=== PATIENT | female | born 1990 | race Caucasian/White ===

== ENCOUNTER 2017-07-30 13:34 | Emergency (ER) | payer OTHER ==
[~2017-07-30] VITALS: Ht 160 cm; Wt 99.1 kg
[2017-07-30 13:34] VITALS: BP 132/92
[~2017-07-30 13:34] MED LIST: /MOM400 PO; ACET50TA PO; COLA50CA3 PO; IBUP600T26 PO; MOTR200T44 PO; PRE-TAB3 PO; RANI1TAB6 PO; ZANT150T PO
[2017-07-30] MEDS ORDERED: SERT-138 (14:05)
== END 2017-07-30 16:29 | disposition left against medical advice (07) ==
LOC: M ED 13:34
DX: J02.9 Acute pharyngitis, unspecified (principal); Z53.21 Procedure and treatment not carried out due to patient leaving prior to being seen by health care provider

== ENCOUNTER 2018-07-07 14:48 | Emergency (ER) | payer SELFPAY, OTHER ==
[2018-07-07 15:41] LABS: BASO % 0.2 % (0.0-1.0); EOS # 0.1 10^3/uL (0.0-0.50); EOS % 0.4 % (0.0-3.0); HEMATOCRIT 37.7 % (36.0-47.0); HEMOGLOBIN 12.8 g/dl (12.0-15.5); IMMATURE GRANULOCYTE % 0.5 % (0-3.0); LYMPH # 3.5 10^3/uL (1.5-6.5); LYMPH % 29.4 % (24.0-44.0); MEAN CORPUSCULAR VOLUME 88.5 fl (80.0-96.0); MONO # 0.5 10^3/uL (0.0-0.8); MONO % 4.5 % (0.0-5.0); NEUTROPHILS # 7.8 10^3/uL (1.8-7.7); PLATELET COUNT, AUTOMATED 304 10^3/uL (150-450); RED BLOOD COUNT 4.26 10^6/uL (4.00-5.40); RED CELL DISTRIBUTION WIDTH 12.8 % (11.5-14.5)
[2018-07-07 15:51] LABS: CONTROL LINE HCG INT CTR LINE PRESENT; HCG, SERUM QUALITATIVE NEGATIVE (NEGATIVE)
[2018-07-07 15:52] LABS: INR 1.05; PROTHROMBIN TIME 13.9 SECONDS (12.1-14.4)
[2018-07-07 15:53] LABS: PARTIAL THROMBOPLASTIN TIME 30.8 SECONDS (25.4-37.6)
== END 2018-07-07 17:14 | disposition home or self-care (01) ==
LOC: M ED 14:48
DX: N93.8 Other specified abnormal uterine and vaginal bleeding (principal); N83.291 Other ovarian cyst, right side; D25.9 Leiomyoma of uterus, unspecified; K21.9 Gastro-esophageal reflux disease without esophagitis; F32.9 Major depressive disorder, single episode, unspecified; Z79.899 Other long term (current) drug therapy; Z88.1 Allergy status to other antibiotic agents
CPT/HCPCS: 76856

== ENCOUNTER 2018-09-25 13:41 | Emergency (ER) | payer SELFPAY | END 2018-09-25 15:30 | disposition home or self-care (01) | LOC: M ED 13:41 | DX: J30.9 Allergic rhinitis, unspecified (principal); Z79.899 Other long term (current) drug therapy; Z88.8 Allergy status to other drugs, medicaments and biological substances | CPT/HCPCS: 99283 ==

== ENCOUNTER → 2019-04-15 | Outpatient (REF) | payer MEDICAID ==
[~2019-04-15] MED LIST changes: -/MOM400 PO; -ACET50TA PO; +IBUP-1022 PO; +MAPA500T17 PO; +MILK10SU PO; +MUCI600T31 PO; +SERT-138; +SUDA30TA8 PO
[2019-04-15 13:26] LABS: APPEARANCE, URINE CLOUDY (CLEAR); BACTERIA, URINE AUTO NEGATIVE (NEGATIVE); BILIRUBIN, URINE AUTO NEGATIVE (NEGATIVE); BLOOD, URINE BLOOD 2+ (NEGATIVE); COLOR, URINE YELLOW (YELLOW); GLUCOSE, URINE (UA) AUTO NEGATIVE (NEGATIVE); KETONE, URINE AUTO NEGATIVE (NEGATIVE); LEUKOCYTE ESTERASE, URINE AUTO 3+ (NEGATIVE); MUCUS, URINE SMALL (NEGATIVE); NITRITE, URINE AUTO NEGATIVE (NEGATIVE); PROTEIN, URINE AUTO 1+ mg/dL (NEGATIVE); RBC, URINE AUTO 14 /HPF (0-3); SPECIFIC GRAVITY URINE AUTO 1.024 (1.002-1.035); SQUAMOUS EPITHELIAL CELL UR AU 46 /HPF (0-6); UROBILINOGEN, URINE AUTO 0.2 mg/dL (0.0-2.0); WBC, URINE AUTO 20 /HPF (0-3)
== END ==
LOC: M LAB REF 12:37
PROVIDERS: ATTEND Physician Assistant Medical
DX: N39.0 Urinary tract infection, site not specified (principal)

== ENCOUNTER 2019-06-16 05:06 | Emergency (ER) | payer MEDICAID, OTHER ==
[~2019-06-16] VITALS: Ht 162.6 cm; Wt 121.2 kg
[2019-06-16 07:00] LABS: BASO % 0.2 % (0.0-1.0); EOS # 0.1 10^3/uL (0.0-0.50); HEMATOCRIT 38.6 % (36.0-47.0); LYMPH # 4.2 10^3/uL (1.5-6.5); LYMPH % 34.9 % (24.0-44.0); MEAN CORPUSCULAR HEMOGLOBIN 29.1 pg (27.0-33.0); MEAN CORPUSCULAR HGB CONC 33.7 g/dl (32.0-36.5); MEAN CORPUSCULAR VOLUME 86.4 fl (80.0-96.0); MONO # 0.7 10^3/uL (0.0-0.8); MONO % 5.9 % (0.0-5.0); NEUTROPHILS % 57.7 % (36.0-66.0); PLATELET COUNT, AUTOMATED 322 10^3/uL (150-450); RED BLOOD COUNT 4.47 10^6/uL (4.00-5.40); WHITE BLOOD COUNT 12.1 10^3/uL (4.0-10.0)
[2019-06-16 07:06] LABS: CHLAMYDIA DNA AMPLIFICATION NEGATIVE (NEGATIVE); GC DNA AMPLIFICATION NEGATIVE (NEGATIVE)
[2019-06-16] MEDS ORDERED: FOSFOMYCIN TROMETHAMINE 3 GM POWDER PACKET (MONUROL) PO ONE (08:15)
[2019-06-16 08:43] VITALS: BP 132/83
[2019-06-16 11:50] LABS: CHLAMYDIA DNA AMPLIFICATION NEGATIVE (NEGATIVE); GC DNA AMPLIFICATION NEGATIVE (NEGATIVE)
== END 2019-06-16 08:50 | disposition home or self-care (01) ==
LOC: M ED 05:06
DX: O23.41 Unspecified infection of urinary tract in pregnancy, first trimester (principal); O99.611 Diseases of the digestive system complicating pregnancy, first trimester; K21.9 Gastro-esophageal reflux disease without esophagitis; O99.341 Other mental disorders complicating pregnancy, first trimester; F33.9 Major depressive disorder, recurrent, unspecified; O98.511 Other viral diseases complicating pregnancy, first trimester; B02.9 Zoster without complications; Z79.899 Other long term (current) drug therapy; Z88.0 Allergy status to penicillin; Z88.1 Allergy status to other antibiotic agents; Z3A.00 Weeks of gestation of pregnancy not specified

== ENCOUNTER → 2019-06-18 | Outpatient (CLI) | payer OTHER | LOC: M LAB 09:10 | PROVIDERS: ATTEND Physician Assistant | DX: Z00.00 Encounter for general adult medical examination without abnormal findings (principal) ==

== ENCOUNTER 2019-07-27 17:47 | Emergency (ER) | payer OTHER ==
[~2019-07-27] VITALS: Ht 160 cm; Wt 118.2 kg
[~2019-07-27 17:47] MED LIST changes: +RANI-356 PO; -RANI1TAB6 PO
[2019-07-27] MEDS ORDERED: PREN29TA4 PO (17:52)
[2019-07-27] MEDS ORDERED: ZOFR4TAB16 PO (17:52)
--- NOTE | 2019-07-27 18:28 | REPVR ---
EXAM: US First Trimester, Transabdominal EXAM DATE/TIME: 07/27/2019 6:09 PM CLINICAL HISTORY: 28 years old, female; Lmp or gestational age (in weeks): 11; Other: Vaginal bleeding; ; Additional info: Vaginal bleeding, 10 weeks 4 days TECHNIQUE: Imaging protocol: Real-time transabdominal obstetrical ultrasound of the maternal pelvis and a first trimester , less than 14 weeks 0 days, with image documentation. COMPARISON: No relevant prior studies available. FINDINGS: GESTATION: Gestation: Single gestational sac in the uterus. Single fetus demonstrated within the gestational sac. [place]-rump length of the fetus is 4.1 cm. Heart rate: heart rate 165 beats per minute. Placenta: Early placental tissue forming posteriorly. Amniotic fluid: Amniotic and chorionic fluid are normal for gestational age. BIOMETRY: Estimated gestational age: The gestational age based on crown-rump length is 11 weeks. Gestational age based on LMP of 05/14/2019 is 10 weeks 4 days MATERNAL: Uterus: Unremarkable. Cervix: Unremarkable. Right adnexa: Unremarkable. Left adnexa: Cyst left ovary measures 2.8 x 2.1 cm. Otherwise unremarkable. Intraperitoneal: No intraperitoneal free fluid. IMPRESSION: Unremarkable for trimester scan at 11 weeks. Detailed structural survey can be performed between 19-20 weeks if clinically desired. Electronically signed by: Kota Mcgovern On 07/27/2019 18:28:10 PM
[2019-07-27 18:32] LABS: BASO % 0.2 % (0.0-1.0); EOS # 0.1 10^3/uL (0.0-0.5); EOS % 0.8 % (0.0-3.0); HEMATOCRIT 39.2 % (36.0-47.0); HEMOGLOBIN 13.4 g/dl (12.0-15.5); LYMPH # 3.5 10^3/uL (1.5-5.0); LYMPH % 28.2 % (24.0-44.0); MEAN CORPUSCULAR HEMOGLOBIN 30.5 pg (27.0-33.0); MEAN CORPUSCULAR HGB CONC 34.2 g/dl (32.0-36.5); MEAN CORPUSCULAR VOLUME 89.1 fl (80.0-96.0); MONO # 0.7 10^3/uL (0.0-0.8); MONO % 5.2 % (0.0-5.0); NEUTROPHILS # 8.1 10^3/uL (1.5-8.5); NEUTROPHILS % 65.2 % (36.0-66.0); PLATELET COUNT, AUTOMATED 276 10^3/uL (150-450); WHITE BLOOD COUNT 12.5 10^3/uL (4.0-10.0)
[2019-07-27 19:26] LABS: BLOOD UREA NITROGEN 6 MG/DL (7-18); CALCIUM LEVEL 9.1 MG/DL (8.5-10.1); CARBON DIOXIDE LEVEL 25 MEQ/L (21-32); CHLORIDE LEVEL 105 MEQ/L (98-107); CREATININE FOR GFR 0.69 MG/DL (0.55-1.30); GLOMERULAR FILTRATION RATE > 60.0 (>60); GLUCOSE, FASTING 97 MG/DL (70-100); HCG, SERUM QUANTITATIVE 28736 MIU/ML; POTASSIUM SERUM 3.8 MEQ/L (3.5-5.1); SODIUM LEVEL 138 MEQ/L (136-145)
[2019-07-27 19:59] VITALS: BP 143/93
== END 2019-07-27 20:04 | disposition home or self-care (01) ==
LOC: M ED 17:47
DX: O20.9 Hemorrhage in early pregnancy, unspecified (principal); Z3A.11 11 weeks gestation of pregnancy; O99.611 Diseases of the digestive system complicating pregnancy, first trimester; K21.9 Gastro-esophageal reflux disease without esophagitis; Z79.899 Other long term (current) drug therapy; Z88.0 Allergy status to penicillin; Z88.1 Allergy status to other antibiotic agents

== ENCOUNTER → 2019-08-21 | Outpatient (CLI) | payer OTHER ==
[~2019-08-21] MED LIST changes: +PREN29TA4 PO; +ZOFR4TAB16 PO
[2019-08-21 17:10] LABS: BASO % 0.2 % (0.0-1.0); EOS # 0.1 10^3/uL (0.0-0.5); EOS % 0.4 % (0.0-3.0); HEMATOCRIT 36.8 % (36.0-47.0); HEMOGLOBIN 12.3 g/dl (12.0-15.5); LYMPH # 2.5 10^3/uL (1.5-5.0); LYMPH % 21.6 % (24.0-44.0); MEAN CORPUSCULAR HEMOGLOBIN 29.5 pg (27.0-33.0); MEAN CORPUSCULAR HGB CONC 33.4 g/dl (32.0-36.5); MEAN CORPUSCULAR VOLUME 88.2 fl (80.0-96.0); MONO # 0.5 10^3/uL (0.0-0.8); MONO % 4.2 % (0.0-5.0); NEUTROPHILS # 8.6 10^3/uL (1.5-8.5); NEUTROPHILS % 73.3 % (36.0-66.0); PLATELET COUNT, AUTOMATED 224 10^3/uL (150-450); RED BLOOD COUNT 4.17 10^6/uL (4.00-5.40); WHITE BLOOD COUNT 11.7 10^3/uL (4.0-10.0)
[2019-08-21 17:33] LABS: ALT/SGPT 28 U/L (12-78); BILIRUBIN,TOTAL 0.2 MG/DL (0.2-1.0); CREATININE FOR GFR 0.41 MG/DL (0.55-1.30); GLOMERULAR FILTRATION RATE > 60.0 (>60); GLUCOSE CHALLENGE TEST 1 HOUR 118 MG/DL (LESS THAN 140); LDH LACTATE DEHYDROGENASE 151 U/L (84-246); URIC ACID 3.6 MG/DL (2.6-6.0)
[2019-08-21 17:57] LABS: HEMOGLOBIN A1c 4.6 %
[2019-08-21 18:02] LABS: TOTAL PROTEIN,RANDOM URINE 45.3 MG/DL (0.0-12.0)
[2019-08-21 18:39] LABS: CHLAMYDIA DNA AMPLIFICATION NEGATIVE (NEGATIVE); GC DNA AMPLIFICATION NEGATIVE (NEGATIVE)
[2019-08-22 11:57] LABS: RUBELLA IgG QUALITATIVE IMMUNE (IMMUNE)
[2019-08-22 12:26] LABS: HEPATITIS C VIRUS ABY INDEX 0.1 INDEX (<0.8); HIV 1&2 SCREEN CENTAUR NEGATIVE (NEGATIVE)
[2019-08-24 00:26] LABS: HSV IgM TYPES 1&2 1.12 Ratio (0.00-0.90); HSV TYPE II IgG SPECIFIC 2.62 index (0.00-0.90)
[2019-08-28 10:07] LABS: HPV HYBRID CAPTURE II Positive (Negative)
== END ==
LOC: M SMT 14:44
PROVIDERS: ATTEND Advanced Practice Midwife
DX: Z34.81 Encounter for supervision of other normal pregnancy, first trimester (principal); Z3A.09 9 weeks gestation of pregnancy; R87.610 Atypical squamous cells of undetermined significance on cytologic smear of cervix (ASC-US)

== ENCOUNTER → 2019-10-01 | Outpatient (CLI) | payer OTHER ==
--- NOTE | 2019-10-02 05:05 | REP ---
Clinical: Anatomical evaluation. Comparison: 90 07/08/2019 Findings: Examination demonstrates a single live intrauterine in variable presentation. motion is identified by technologist. Placenta is noted posterior and grade I without evidence for placenta previa or abruption. Amniotic fluid volume is normal. Cervix measures 5.1 cm in length and appears closed. Nuchal cord cannot be excluded. Gestational age by LMP 20 weeks 0 days with ELDER 02/18/2020 . Gestational age by current measurements 20 weeks 4 days with ELDER 02/14/2020 . FHR equals 146 beats per minute. BPD 4.8 cm 20 weeks 4 days HC 17.7 cm 20 weeks 1 day AC 15.7 cm 20 weeks 6 days FL 3.3 cm 20 weeks 3 days HL 3.2 cm 20 weeks 6 days HC/AC ratio 1.13 Estimated weight 365 grams ( 69th percentile). Anatomical assessment demonstrates normal structures including cranium, choroid plexus, cavum, cerebellum/posterior fossa, facial features, lungs, four-chamber heart/ventricular outflow tracts, diaphragm, stomach, cord insertion/three-vessel cord, kidneys/bladder, spine, and extremities. Impression: Single live intrauterine in variable presentation demonstrating appropriate interval growth. Anatomical assessment is complete and normal. 2. Nuchal cord cannot be excluded. Electronically Signed by Zeke Huang MD 10/02/2019 04:56 A
== END ==
LOC: M RAD 14:42
PROVIDERS: ATTEND Advanced Practice Midwife
DX: Z36.9 Encounter for antenatal screening, unspecified (principal); Z3A.20 20 weeks gestation of pregnancy

== ENCOUNTER → 2019-11-24 | Outpatient (CLI) | payer OTHER ==
[~2019-11-24] MED LIST changes: -RANI-356 PO; +RANI-397 PO
[2019-11-24 18:01] LABS: HEMATOCRIT 36.1 % (36.0-47.0); HEMOGLOBIN 11.8 g/dl (12.0-15.5); MEAN CORPUSCULAR HEMOGLOBIN 29.9 pg (27.0-33.0); MEAN CORPUSCULAR HGB CONC 32.7 g/dl (32.0-36.5); MEAN CORPUSCULAR VOLUME 91.6 fl (80.0-96.0); PLATELET COUNT, AUTOMATED 229 10^3/uL (150-450); RED BLOOD COUNT 3.94 10^6/uL (4.00-5.40); WHITE BLOOD COUNT 13.8 10^3/uL (4.0-10.0)
== END ==
LOC: M PLALAB 12:38
PROVIDERS: ATTEND Advanced Practice Midwife
DX: Z36.89 Encounter for other specified antenatal screening (principal)

== ENCOUNTER → 2019-12-16 | Outpatient (CLI) | payer OTHER ==
[2019-12-16 16:44] LABS: ALBUMIN 2.8 GM/DL (3.2-5.2); ALT/SGPT 20 U/L (12-78); BILIRUBIN,DIRECT < 0.1 MG/DL (0.0-0.2); BILIRUBIN,TOTAL 0.2 MG/DL (0.2-1.0); TOTAL PROTEIN 6.3 GM/DL (6.4-8.2)
== END ==
LOC: M PLALAB 13:47
PROVIDERS: ATTEND Advanced Practice Midwife
DX: L29.8 Other pruritus (principal)

== ENCOUNTER → 2020-01-21 | Outpatient (CLI) | payer OTHER ==
--- NOTE | 2020-01-21 14:17 | REP ---
Obstetric sonography: History: Supervision of size larger than dates. Third trimester scan. Findings: Scanning through the gravid uterus demonstrates a viable single intrauterine gestation in a cephalic lie. motion is observed and heart rate is recorded at 150 beats per minute. A posterior grade 1 placenta is seen without evidence of previa or abruption. Amniotic fluid is subjectively normal. Closed cervical length is 3.6 cm. No extrauterine abnormality is observed. There has been appropriate interval growth. The following anatomic structures are identified and felt to be unremarkable today: cranium, cavum, face and profile, four-chamber heart, left-sided stomach, three-vessel cord, kidneys and bladder. Biometry chart: BPD 9.0 cm = 36 weeks 3 days Head circumference 33.8 cm = 38 weeks 6 days Abdominal circumference 33.4 cm = 37 weeks 2 days Femur length 6.9 cm = 35 weeks 3 days Humeral length 6.4 cm = 37 weeks 1 day HC/AC ratio normal 1.01. Cephalic index normal 0.73. Estimated weight 3065 grams, 6 pounds 12 ounces, 66th percentile for 36 weeks 0 days. MILA normal 14.0 cm. Impression: Viable single intrauterine gestation at 36 weeks 3 days by today's composite sonographic criteria. Expected gestational age estimate based on prior sonography is 36 weeks 0 days. ELDER by prior sonography March 19, 2020. There has been appropriate interval growth.
== END ==
LOC: M WHC 10:48
PROVIDERS: ATTEND Advanced Practice Midwife
DX: Z36.85 Encounter for antenatal screening for Streptococcus B (principal); Z36.2 Encounter for other antenatal screening follow-up; Z3A.36 36 weeks gestation of pregnancy; O26.849 Uterine size-date discrepancy, unspecified trimester

== ENCOUNTER 2020-02-15 07:14 | Inpatient (IN) | payer OTHER ==
[2020-02-15] VITALS (32 sets, daily range): BP systolic 88–145; BP diastolic 56–88
[~2020-02-15] VITALS: Ht 162.6 cm; Wt 135.9 kg
[2020-02-15] MEDS ORDERED: miSOPROStol 50 MCG 1/2 TAB (S0191) SL SCH (09:00)
[2020-02-15] MEDS: LR 1,000 ML IV SCH ×3 (09:43→19:25)
--- NOTE | 2020-02-15 09:57 | HPE ---
DATE OF ADMISSION: 02/15/2020 A 29-year-old G7, P5-0-1-5 female at 39-4/7 weeks' gestation by last menstrual period (LMP) consistent with 9-week ultrasound, estimated date of confinement (EDC) of 02/18/2020, presents for labor induction. The patient has occasional contractions. She denies vaginal bleeding. There is good movement. COURSE: The patient initiated care at 9 weeks' gestation on 07/17/2019 . Her first-trimester blood pressure was 132/78. Weight 263 pounds. She has a history of possible genital herpes infection but no prove in herpes cultures. History of preeclampsia in a prior . She was treated with Valtrex during the latter part of for prophyllaxis. OBSTETRICAL HISTORY: 1. 2008, 38-week vaginal delivery, 7 pound 8 ounce male infant. complicated by preeclampsia. 2. November 2010, 39-week vaginal delivery, 6 pound 9 ounce female . 3. 2011, 39-week vaginal delivery, 7 pound 4 ounce female infant. 4. 2013, 39-week vaginal delivery, 7 pound 8 ounce female . 5. 2014, 39-week vaginal delivery, 7 pound 8 ounce male infant. 6. 2014, spontaneous . MEDICAL HISTORY: Depression. SURGICAL HISTORY: None. ALLERGIES: 1. PENICILLIN. 2. CECLOR. SOCIAL HISTORY: The patient lives in [place]. She denies cigarettes, alcohol, or drug use. FAMILY HISTORY: Noncontributory. PHYSICAL EXAMINATION: Blood pressure 134/74, pulse 84. No apparent distress. HEAD AND NECK EXAMINATION: Normal. LUNGS: Clear. HEART: Regular rate and rhythm. ABDOMEN: Nontender, gravid. heart tones category 1. Contractions irregular. EXTREMITIES: Nontender. LABORATORIES: Blood type is O positive, rubella immune, rapid plasma reagin (RPR) nonreactive, group B streptococcus (GBS) negative. ASSESSMENT: A 29-year-old G7, P5-0-1-5 female at 39-4/7 weeks' gestation presents for labor induction. PLAN: The patient is admitted on 02/15/2020. The risks of induction are discussed.
[2020-02-15 10:08] LABS: HEMATOCRIT 36.8 % (36.0-47.0); HEMOGLOBIN 12.1 g/dl (12.0-15.5); MEAN CORPUSCULAR HEMOGLOBIN 29.1 pg (27.0-33.0); MEAN CORPUSCULAR HGB CONC 32.9 g/dl (32.0-36.5); MEAN CORPUSCULAR VOLUME 88.5 fl (80.0-96.0); PLATELET COUNT, AUTOMATED 240 10^3/uL (150-450); RED BLOOD COUNT 4.16 10^6/uL (4.00-5.40); WHITE BLOOD COUNT 13.8 10^3/uL (4.0-10.0)
[2020-02-15] MEDS ORDERED: ROLA1CHW PO (10:30)
[2020-02-15] MEDS ORDERED: ASPI81TA26 PO (10:30)
[2020-02-15] MEDS ORDERED: VALA500T5 (10:30)
[2020-02-15] MEDS ORDERED: FAMO40TA3 PO (10:30)
[2020-02-15] MEDS ORDERED: OXYTOCIN 30 UNITS IN 0.9% NaCl 500ML IV BAG (J2590) As Ordered ONE (12:54)
[2020-02-15] MEDS ORDERED: OXYTOCIN DRIP 30 UNITS in IV 1 EA IV SCH (13:00)
[2020-02-15] MEDS ORDERED: FENTANYL 2MCG/ML ROPIVACAINE 0.2% IN 0.9% NACL 100ML IVBAG As Ordered ONE (16:17)
[2020-02-15] MEDS ORDERED: diphenhydrAMINE INJ 50MG/ML VIAL (J1200) IV PRN (17:00)
[2020-02-15] MEDS ORDERED: EPIDURAL COMMENT XX SCH (17:00)
[2020-02-15] MEDS ORDERED: EPIDURAL/PCA KEYS XX PRN (17:00)
[2020-02-15] MEDS ORDERED: REFRIGERATOR IV KEYS XX PRN (17:00)
[2020-02-15] MEDS ORDERED: ONDANSETRON 4MG/2ML VIAL (J2405) IV PRN (17:00)
[2020-02-15] MEDS ORDERED: ePHEDrine SULFATE 25 MG/5 ML(5MG/ML) SYRINGE IV PRN (17:00)
[2020-02-15] MEDS ORDERED: FENTANYL/ROPIVACAINE/NACL BAG 100 ML EPIDURAL SCH (17:00)
[2020-02-15] MEDS ORDERED: NALOXONE INJ 0.4 MG/1 ML VIAL (J2310) IV PRN (17:00)
[2020-02-15] MEDS ORDERED: CALCIUM CARBONATE 500 MG CHEW U/D PO PRN (22:45)
[2020-02-16] VITALS (7 sets, daily range): BP systolic 113–133; BP diastolic 58–76
[2020-02-16] MEDS ORDERED: IBUPROFEN 800 MG TAB PO PRN (00:45)
[2020-02-16] MEDS ORDERED: MEASLES,MUMPS,RUBELLA VACCINE INJ (MMR-II) (90707) SC SCH (00:45)
[2020-02-16] MEDS ORDERED: RHOGAM 300 MCG (1500 IU) INJ (J2790) IM SCH (00:45)
[2020-02-16] MEDS ORDERED: ACETAMINOPHEN 500 MG TAB PO PRN (00:45)
[2020-02-16] MEDS ORDERED: METHYLERGONOVINE MALEATE 0.2 MG TAB PO PRN (00:45)
[2020-02-16] MEDS ORDERED: ONDANSETRON 4MG/2ML VIAL (J2405) IV PRN (00:45)
[2020-02-16] MEDS ORDERED: DOCUSATE SODIUM 100 MG CAP PO PRN (00:45)
[2020-02-16] MEDS ORDERED: DIBUCAINE 1% OINTMENT 30GM TOP PRN (00:45)
[2020-02-16] MEDS ORDERED: OXYTOCIN DRIP 30 UNITS in IV 1 EA IV ONE (00:45)
[2020-02-16] MEDS ORDERED: ACETAMINOPHEN TAB 650MG DOSE (2X325MG) PO PRN (00:45)
[2020-02-16] MEDS: IBUPROFEN 600 MG TAB PO PRN ×2 (01:51→08:22)
--- NOTE | 2020-02-16 06:53 | DN ---
DATE: 02/16/2020 PREDELIVERY DIAGNOSIS: 39 and 4/7 weeks gestation, labor induction. POSTDELIVERY DIAGNOSIS: Delivered. PROCEDURE: Spontaneous vaginal delivery. BILLING ASSISTANT: Dr. Bradley Lin ANESTHESIA: Epidural. ESTIMATED BLOOD LOSS: 300 mL. FINDINGS: 8 pound 15 ounce male , Apgars 8 and 9. DELIVERY SUMMARY: After a 9 minute second stage, the patient had spontaneous delivery of an 8 pound 15 ounce male infant, Apgars 8 and 9, under epidural anesthesia. Loose nuchal cord times one was reduced. The shoulders delivered with ease. The was handed to the mother and cried immediately. The cord was doubly clamped and cut. The placenta delivered spontaneously and appeared to be intact. The patient received IV Pitocin immediately delivery of the placenta. There were no vaginal lacerations present. Sponge counts were correct.
[2020-02-16] MEDS: PRENATAL VITAMINS CHEWABLE TABLET PO SCH (08:21)
[2020-02-17 06:32] VITALS: BP 132/85
[2020-02-17] MEDS: PRENATAL VITAMINS CHEWABLE TABLET PO SCH (07:38)
[2020-02-17] MEDS ORDERED: ACET-683 PO (07:45)
[2020-02-17] MEDS ORDERED: IBUP80TA PO (07:45)
== END 2020-02-17 11:50 | disposition home or self-care (01) | DRG 560 ==
LOC: M LDI 07:14 → M OBS 02-16 02:42
PROVIDERS: ADMIT Specialist; ATTEND Specialist
PROC: 3E0P7GC Introduction of Other Therapeutic Substance into Female Reproductive, Via Natural or Artificial Opening (ICD-10-PCS; 2020-02-15)
PROC: 10E0XZZ Delivery of Products of Conception, External Approach (ICD-10-PCS; principal; 2020-02-16)
DX: O69.81X0 Labor and delivery complicated by cord around neck, without compression, not applicable or unspecified (principal); Z3A.39 39 weeks gestation of pregnancy; Z37.0 Single live birth

== ENCOUNTER → 2020-09-02 | Outpatient (REF) | payer OTHER ==
[~2020-09-02] MED LIST changes: +ACET-683 PO; +ASPI81TA26 PO; +FAMO40TA3 PO; +IBUP80TA PO; +ROLA1CHW PO; +VALA500T5
[2020-09-02 17:52] LABS: HEMATOCRIT 40.5 % (36.0-47.0); HEMOGLOBIN 13.1 g/dl (12.0-15.5); MEAN CORPUSCULAR HEMOGLOBIN 27.7 pg (27.0-33.0); MEAN CORPUSCULAR HGB CONC 32.3 g/dl (32.0-36.5); MEAN CORPUSCULAR VOLUME 85.6 fl (80.0-96.0); PLATELET COUNT, AUTOMATED 302 10^3/uL (150-450); RED BLOOD COUNT 4.73 10^6/uL (4.00-5.40); WHITE BLOOD COUNT 10.9 10^3/uL (4.0-10.0)
[2020-09-02 18:11] LABS: HEMOGLOBIN A1c 5.1 %
[2020-09-02 18:20] LABS: CREATININE,RANDOM URINE 41.1 MG/DL; TOTAL PROTEIN,RANDOM URINE 28.6 MG/DL (0.0-12.0)
[2020-09-02 18:36] LABS: ALT/SGPT 30 U/L (12-78); BILIRUBIN,TOTAL 0.3 MG/DL (0.2-1.0); CREATININE FOR GFR 0.62 MG/DL (0.55-1.30); GLOMERULAR FILTRATION RATE > 60.0 (>60); GLUCOSE CHALLENGE TEST 1 HOUR 110 MG/DL (LESS THAN 140); LDH LACTATE DEHYDROGENASE 177 U/L (84-246); URIC ACID 4.5 MG/DL (2.6-6.0)
[2020-09-02 19:17] LABS: HEPATITIS C VIRUS ABY INDEX 0.1 INDEX (<0.8)
[2020-09-02 19:18] LABS: HIV 1&2 SCREEN CENTAUR NEGATIVE (NEGATIVE)
== END ==
LOC: M PLALAB 14:22
PROVIDERS: ATTEND Advanced Practice Midwife
DX: O99.211 Obesity complicating pregnancy, first trimester (principal)

== ENCOUNTER → 2020-10-26 | Outpatient (CLI) | payer OTHER | LOC: M WHC 11:12 | PROVIDERS: ATTEND Obstetrics & Gynecology | DX: Z34.92 Encounter for supervision of normal pregnancy, unspecified, second trimester (principal); Z3A.17 17 weeks gestation of pregnancy; Z53.9 Procedure and treatment not carried out, unspecified reason ==

== ENCOUNTER → 2020-11-04 | Outpatient (CLI) | payer OTHER ==
--- NOTE | 2020-11-04 13:40 | REP ---
INDICATION: ANATOMY. COMPARISON: None. TECHNIQUE: Transabdominal obstetric sonography. FINDINGS: Scanning through the gravid uterus demonstrates a viable single intrauterine gestation in breech lie. motion is observed and heart rate is recorded at 153 beats per minute. A right fundal placenta is seen, grade 1, without evidence of placenta previa. Amniotic fluid is subjectively normal. Closed cervical length is measured at 4.1 cm transabdominally. No extrauterine abnormality is observed. Amniotic fluid is subjectively normal. No abnormality is observed. nose and lips four-chamber heart, outflow tract, and spine visualization was less than optimal due to position and maternal body habitus. The following additional anatomic structures are identified felt to be unremarkable: cranium intracranial anatomy, facial profile, left-sided stomach, abdominal wall cord insertion, right and left kidney, urinary bladder, upper and lower extremities, three-vessel cord.. Biometry chart: BPD 4.2 cm, 18 weeks 5 days Head circumference 15.2 cm, 18 weeks 1 day Abdominal circumference 13.8 cm, 19 weeks 2 days Femur length 2.9 cm, 18 weeks 5 days Humeral length 3.0 cm, 19 weeks 6 days The HC AC ratio normal 1.10 Cephalic index normal 0.78 Estimated weight 265 g, 0 lb 9 oz, 68th percentile for 18 weeks 4 days IMPRESSION: Viable single intrauterine gestation at 19 weeks 0 days by today's composite sonographic criteria. ELDER by today's sonography April 02, 2021. No complication identified. anatomic survey less than complete regarding nose and lip, four-chamber heart and outflow tract views, and spine. <Electronically signed by Matthew Acuna > 11/04/20 [id number]
== END ==
LOC: M WHC 09:15
PROVIDERS: ATTEND Obstetrics & Gynecology
DX: Z34.92 Encounter for supervision of normal pregnancy, unspecified, second trimester (principal); Z3A.19 19 weeks gestation of pregnancy

== ENCOUNTER → 2020-11-23 | Outpatient (CLI) | payer OTHER | LOC: M WHC 13:33 | PROVIDERS: ATTEND Obstetrics & Gynecology | DX: Z34.92 Encounter for supervision of normal pregnancy, unspecified, second trimester (principal); Z3A.21 21 weeks gestation of pregnancy; Z53.9 Procedure and treatment not carried out, unspecified reason ==

== ENCOUNTER → 2020-11-26 | Outpatient (CLI) | payer OTHER ==
--- NOTE | 2020-11-26 14:43 | REP ---
INDICATION: F/U ANATOMY COMPARISON: 11/04/2020 TECHNIQUE: Transabdominal obstetrical ultrasound with color Doppler evaluation. FINDINGS: Examination demonstrates a single live intrauterine in transverse (head to maternal left) presentation. motion is identified by technologist. Placenta is noted posterior/fundal and grade 1 without evidence for placenta previa or abruption. Amniotic fluid volume is normal. Cervix measures 3.7 cm in length and appears closed.. Gestational age by LMP 21 weeks 5 days with ELDER 04/03/2021. Gestational age by current measurements 22 weeks 0 days with ELDER 04/01/2021. FHR equals 158 beats per minute. Estimated weight 448 grams (46thpercentile). Anatomical assessment demonstrates normal structures including cranium, facial features, nose/lips, heart/ventricular outflow tracts, diaphragm, stomach, abdominal wall, bladder and 3 vessel cord. Evaluation of the spine is again limited due to positioning. IMPRESSION: Single live intrauterine in transverse lie demonstrating appropriate estimated weight and growth. In conjunction with prior examination, there continues to be limited evaluation of the spine due to positioning although remainder of the examination is normal. <Electronically signed by Zeke Huang > 11/26/20 [id number]
== END ==
LOC: M WHC 11:02
PROVIDERS: ATTEND Obstetrics & Gynecology
DX: Z36.2 Encounter for other antenatal screening follow-up (principal); Z3A.21 21 weeks gestation of pregnancy; O32.2XX0 Maternal care for transverse and oblique lie, not applicable or unspecified

== ENCOUNTER → 2020-12-28 | Outpatient (CLI) | payer OTHER ==
--- NOTE | 2020-12-29 06:47 | REP ---
INDICATION: F/U ANATOMY COMPARISON: 11/26/2020 TECHNIQUE: Transabdominal obstetrical ultrasound with color Doppler evaluation. FINDINGS: Examination demonstrates a single live intrauterine in breech presentation. motion is identified by technologist. Placenta is noted fundal and grade 1 without evidence for placenta previa or abruption. Amniotic fluid volume is normal. Cervix measures 3.9 cm in length and appears closed.. Gestational age by LMP 26 weeks 2 days with ELDER 04/03/2021. Gestational age by current measurements 27 weeks 1 day with ELDER 03/28/2021. FHR equals 146 beats per minute. Estimated weight 985 grams (61stpercentile). Anatomical assessment demonstrates normal structures including cranium, facial features, stomach, kidneys/bladder, and spine. IMPRESSION: Single live intrauterine in breech presentation demonstrating appropriate estimated weight and growth. In conjunction with prior examination anatomical assessment is complete and normal. <Electronically signed by Zeke Huang > 12/29/20 [id number]
== END ==
LOC: M WHC 13:58
PROVIDERS: ATTEND Advanced Practice Midwife
DX: Z34.82 Encounter for supervision of other normal pregnancy, second trimester (principal); Z3A.25 25 weeks gestation of pregnancy

== ENCOUNTER → 2021-01-21 | Outpatient (REF) | payer OTHER ==
[2021-01-21 16:05] LABS: HEMATOCRIT 35.6 % (36.0-47.0); HEMOGLOBIN 11.6 g/dl (12.0-15.5); MEAN CORPUSCULAR HEMOGLOBIN 28.8 pg (27.0-33.0); MEAN CORPUSCULAR HGB CONC 32.6 g/dl (32.0-36.5); MEAN CORPUSCULAR VOLUME 88.3 fl (80.0-96.0); PLATELET COUNT, AUTOMATED 274 10^3/uL (150-450); RED BLOOD COUNT 4.03 10^6/uL (4.00-5.40); WHITE BLOOD COUNT 12.2 10^3/uL (4.0-10.0)
== END ==
LOC: M PLALAB 13:42
PROVIDERS: ATTEND Advanced Practice Midwife
DX: Z34.92 Encounter for supervision of normal pregnancy, unspecified, second trimester (principal); Z3A.25 25 weeks gestation of pregnancy

== ENCOUNTER → 2021-02-22 | Outpatient (REF) | payer OTHER ==
[2021-02-22 18:10] LABS: HEMATOCRIT 35.6 % (36.0-47.0); HEMOGLOBIN 11.6 g/dl (12.0-15.5); MEAN CORPUSCULAR HEMOGLOBIN 28.6 pg (27.0-33.0); MEAN CORPUSCULAR HGB CONC 32.6 g/dl (32.0-36.5); MEAN CORPUSCULAR VOLUME 87.9 fl (80.0-96.0); PLATELET COUNT, AUTOMATED 264 10^3/uL (150-450); RED BLOOD COUNT 4.05 10^6/uL (4.00-5.40); WHITE BLOOD COUNT 13.4 10^3/uL (4.0-10.0)
[2021-02-22 18:41] LABS: TOTAL PROTEIN,RANDOM URINE 95.7 MG/DL (0.0-12.0)
[2021-02-22 18:46] LABS: ALBUMIN 2.8 GM/DL (3.2-5.2); ALT/SGPT 13 U/L (12-78); BILIRUBIN,TOTAL 0.2 MG/DL (0.2-1.0); BLOOD UREA NITROGEN 6 MG/DL (7-18); CALCIUM LEVEL 9.2 MG/DL (8.5-10.1); CARBON DIOXIDE LEVEL 22 MEQ/L (21-32); CHLORIDE LEVEL 107 MEQ/L (98-107); CREATININE FOR GFR 0.41 MG/DL (0.55-1.30); GLOMERULAR FILTRATION RATE > 60.0 (>60); GLUCOSE, FASTING 93 MG/DL (70-100); LDH LACTATE DEHYDROGENASE 160 U/L (84-246); POTASSIUM SERUM 3.7 MEQ/L (3.5-5.1); SODIUM LEVEL 138 MEQ/L (136-145); TOTAL PROTEIN 6.5 GM/DL (6.4-8.2); URIC ACID 5.1 MG/DL (2.6-6.0)
== END ==
LOC: M PLALAB 14:05
PROVIDERS: ATTEND Obstetrics & Gynecology
DX: O16.3 Unspecified maternal hypertension, third trimester (principal)

== ENCOUNTER → 2021-03-04 | Outpatient (REF) | payer OTHER | LOC: M SFHCWAGY 16:46 | PROVIDERS: ATTEND Advanced Practice Midwife | DX: Z36.89 Encounter for other specified antenatal screening (principal); Z3A.35 35 weeks gestation of pregnancy ==

== ENCOUNTER → 2021-03-08 | Outpatient (CLI) | payer OTHER ==
--- NOTE | 2021-03-08 14:42 | REP ---
INDICATION: BPP/GROWTH/PRE ECLAMPSIA/ELDER 04/03/21 COMPARISON: 12/28/2020 TECHNIQUE: Transabdominal obstetrical ultrasound with color Doppler evaluation. FINDINGS: Examination demonstrates a single live intrauterine in cephalic presentation. motion is identified by technologist. Placenta is noted fundal and grade 2 without evidence for placenta previa or abruption. Amniotic fluid volume is normal. Cervix appears closed.. Gestational age by LMP and 1st U/S 36 weeks 2 days with ELDER 04/03/2021. Gestational age by current measurements 37 weeks 6 days with ELDER 03/23/2021. FHR equals 139 beats per minute. BPD: 9.3 cm at 37 weeks 5 days HC: 33.6 cm at 38 weeks 3 days AC: 34.3 cm at 38 weeks 1 day FL: 7.5 cm at 38 weeks 1 day HL: 6.4 cm at 37 weeks 0 days HC/AC: 0.98 Estimated weight 3405 grams (greater than 97thpercentile based on age by 1st ultrasound). MILA: 10.0 cm (7.6-24.8) Biophysical profile score: 8/8 Umbilical artery SD ratio: 2.37 (1.63-3.49) IMPRESSION: Single live intrauterine in cephalic presentation. Greater than expected interval growth warrants correlation. Amniotic fluid index and biophysical profile score normal. <Electronically signed by Zeke Huang > 03/08/21 [id number]
== END ==
LOC: M PLAIMG 12:59
PROVIDERS: ATTEND Advanced Practice Midwife
DX: O14.93 Unspecified pre-eclampsia, third trimester (principal); Z3A.37 37 weeks gestation of pregnancy

== ENCOUNTER 2021-03-13 06:56 | Inpatient (IN) | payer OTHER ==
[2021-03-13] VITALS (15 sets, daily range): BP systolic 103–145; BP diastolic 58–85
[~2021-03-13] VITALS: Ht 160 cm; Wt 140.7 kg
[2021-03-13] MEDS ORDERED: TUMS750C5 PO (07:30)
--- NOTE | 2021-03-13 08:07 | HPEPDOC ---
Obstetrical History & Physical General Date of Admission Mar 13, 2021 at 06:56 History of Present Illness 30 yo female at 37 0/7 weeks by 9 weeks ultrasound (EDC=04/03/2021) prese nts for labor induction due to preeclampsia. Denies KEY's. No contractions. Chief Complaint: Pre-eclamsia Information Provided By: Patient Age: 30 : 8 Term: 6 Pre-term: 0 Abortions: 1 Livin Care Care: Good Care Dating Final EDC: April 03, 2021 Final EDC by: 1st trimester (US) Antepartum Course Diagnos(e)s h/o genital herpes: Pt did not take HSV prophylaxis, as ordered Past Medical History Past Obstetrical History : Past Obstetrical History: Multigravida Past Medical History Medical History OB Hx: TSVD x 6 SAB x 1 medical hx: obesity genital herpes hypertension Social History Marital Status: Single Family situation: Spouse/partner home Allergies Coded Allergies: Penicillins (Verified Allergy, Severe, rash, 06/16/19) amoxicillin (Verified Allergy, Severe, rash, 02/15/20) cefaclor (Verified Allergy, Severe, rash, 06/16/19) Medications Scheduled Prenat 115/Iron Fum/Folic/Dss ( 19 Tablet) 1 Each Tablet, 1 TAB PO DAILY Scheduled PRN Acetaminophen (Acetaminophen) 500 Mg Tablet, 1,000 MG PO Q8HP PRN for PAIN Calcium Carbonate (Tums) 300 Mg Tab.chew, 3-4 TAB PO Q6HP PRN for INDIGESTION Physical Examination Physical Examination GENERAL: Alert and oriented times three. BREAST: . ABDOMEN: Gravid and non-tender to touch. FETUS: Is vertex (VTX) by sterile vaginal examination (SVE), fetus is vertex (VTX) by Junior. HEART RATE: Regular rate and rhythm. LUNGS: Clear to auscultation (CTA). EXTREMITIES: No edema. No clonus. Deep tendon reflexes (DTRs) + . Laboratory Data 24H LABS Laboratory Tests 2 03/13/21 07:02: Serology Scanned Report Hepatitis B Testing Pertinent Laboratoy Data Group B Streptococcus: Negative Vaginal Examination Dilation: 2cm Effacement: 50% Station: -2 Cervical Consistency: Medium Cervical Position: Posterior Presentation: Cephalic presentation Assessment Variability: Moderate Accelerations: Positive Decelerations: None Tocometer Contractions: No Assessment/Plan Assessment Pt is a 30-year-old (G)8 para (P)6-0-1-6 at 37+0 weeks by 9-week ultrasound presents for induction of labor due to preeclampsia. Plan Admit and orient. Engraver Lettering and consent. Diet: reg Group B Streptococcus (GBS) negative. Labs and intravenous (IV) per unit protocol. Anticipate [normal spontaneous delivery ()]. C-S as appropriate. DWAYNE CEBALLOS MD Mar 13, 2021 08:07
[2021-03-13] MEDS: miSOPROStol 50MCG 1/2 TABLET SL SCH ×3 (08:19→17:12)
[2021-03-13 08:20] LABS: HEMATOCRIT 33.5 % (36.0-47.0); HEMOGLOBIN 11.2 g/dl (12.0-15.5); MEAN CORPUSCULAR HEMOGLOBIN 28.9 pg (27.0-33.0); MEAN CORPUSCULAR HGB CONC 33.4 g/dl (32.0-36.5); MEAN CORPUSCULAR VOLUME 86.3 fl (80.0-96.0); PLATELET COUNT, AUTOMATED 255 10^3/uL (150-450); RED BLOOD COUNT 3.88 10^6/uL (4.00-5.40); WHITE BLOOD COUNT 14.1 10^3/uL (4.0-10.0)
[2021-03-13] MEDS ORDERED: ECOT81TA5 PO (12:16)
[2021-03-13] MEDS ORDERED: REGL5TAB2 PO (12:27)
[2021-03-13] MEDS: CALCIUM CARBONATE 500 MG CHEW U/D PO PRN ×3 (12:46→21:29)
[2021-03-13] MEDS ORDERED: OXYTOCIN 30 UNITS IN 0.9% NaCl 500ML IV BAG (J2590) As Ordered ONE (21:00)
[2021-03-13] MEDS ORDERED: OXYTOCIN DRIP 30 UNITS in IV 1 EA IV SCH (21:15)
[2021-03-13] MEDS: LR 1,000 ML IV SCH (21:25)
[2021-03-13] MEDS ORDERED: FENTANYL 2MCG/ML ROPIVACAINE 0.2% IN 0.9% NACL 100ML IVBAG As Ordered ONE (23:51)
[2021-03-14] VITALS (75 sets, daily range): BP systolic 97–146; BP diastolic 50–88
[2021-03-14] MEDS ORDERED: REFRIGERATOR IV KEYS XX PRN (00:35)
[2021-03-14] MEDS ORDERED: LACTATED RINGER'S 1000 ML IV PRN (00:35)
[2021-03-14] MEDS ORDERED: EPIDURAL COMMENT XX SCH (00:35)
[2021-03-14] MEDS ORDERED: diphenhydrAMINE 50MG/ML VIAL (J1200) IV PRN (00:35)
[2021-03-14] MEDS ORDERED: EPIDURAL/PCA KEYS XX PRN (00:35)
[2021-03-14] MEDS ORDERED: ONDANSETRON 4MG/2ML VIAL IV PRN (00:35)
[2021-03-14] MEDS ORDERED: NALOXONE INJ 0.4MG/1ML VIAL (J2310 PER 1MG) IV PRN (00:35)
[2021-03-14] MEDS ORDERED: ePHEDrine SULFATE 25 MG/5 ML(5MG/ML) SYRINGE IV PRN (00:35)
[2021-03-14] MEDS: CALCIUM CARBONATE 500 MG CHEW U/D PO PRN (02:28)
--- NOTE | 2021-03-14 05:45 | IPNPDOC ---
Obstetrical Progress Note Date of Service Mar 14, 2021 Subjective comfortable with epidural Objective Vital Signs Date Time Temp Pulse Resp B/P (MAP) Pulse Ox O2 Delivery O2 Flow Rate FiO2 03/13/21 18:41 98.2 91 16 137/70 (92) 96 Room Air Assessment Variability: Moderate Accelerations: Positive Decelerations: None Heart Rate Tracing: Category I Tocometer Contractions: Yes Frequency: regular Duration: greater than 60 seconds Strength: palpated as moderate Sterile Vaginal Examination Dilation: 3 cm Effacement (%): 70% Station: -2 Cervical Consistency: Soft Cervical Position: Posterior Postion/Presentation: Cephalic presentation Assessment and Plan Status: Reassuring Additional Comments 30 yo day#2 induction of labor Pt received 3 doses total of Misoprostol Now on Pitocin IV Consider AROM at some point today DWAYNE CEBALLOS MD Mar 14, 2021 05:45
[2021-03-14] MEDS: FENTANYL/ROPIVACAINE/NACL BAG 100 ML EPIDURAL SCH ×3 (06:46→14:41)
--- NOTE | 2021-03-14 08:21 | IPNPDOC ---
Obstetrical Progress Note Date of Service Mar 14, 2021 Subjective Patient reports she is comfortable with her epidural. Objective Vital Signs Date Time Temp Pulse Resp B/P (MAP) Pulse Ox O2 Delivery O2 Flow Rate FiO2 03/14/21 06:53 92 101/61 (74) 03/14/21 06:10 98.1 18 03/13/21 18:41 96 Room Air Assessment Heart Rate (FHR): 140 Variability: Moderate Accelerations: Positive Decelerations: None Heart Rate Tracing: Category I Tocometer Contractions: Yes Frequency: regular Sterile Vaginal Examination Dilation: 4 cm (4-5 cm) Effacement (%): 70% Station: -2 Cervical Consistency: Soft Cervical Position: Anterior Postion/Presentation: Cephalic presentation Assessment and Plan Age: 30 : 8 Term: 6 Pre-term: 0 Abortions: 1 Livin EGA at Admission: 37 Status: Reassuring Group B Streptococcus: Negative Anticipate: Vaginal Delivery Additional Comments FSE and IUPC inserted. IV Pitocin at 18 mu. KANU REDDY CNM Mar 14, 2021 08:21
[2021-03-14] MEDS: LR 1,000 ML IV SCH (12:25)
[2021-03-14] MEDS ORDERED: DIBUCAINE 1% OINTMENT 30GM TOP PRN (15:45)
[2021-03-14] MEDS ORDERED: IBUPROFEN 600MG TAB PO PRN (15:45)
[2021-03-14] MEDS ORDERED: RHOGAM 300 MCG (1500 IU) INJ (J2790) IM SCH (15:45)
[2021-03-14] MEDS ORDERED: ANUSOL HC CREAM 30GM TOP PRN (15:45)
[2021-03-14] MEDS ORDERED: ACETAMINOPHEN TAB 650MG DOSE (2X325MG) PO PRN (15:45)
[2021-03-14] MEDS ORDERED: MEASLES,MUMPS,RUBELLA VACCINE INJ (MMR-II) (90707) SC SCH (15:45)
--- NOTE | 2021-03-14 16:06 | DNPDOC ---
[facility] Delivery Note Delivery Note DATE OF DELIVERY: 03/14/21 at 1516 PREDELIVERY DIAGNOSIS: 37-1/7 weeks' gestation and induction. POST DELIVERY DIAGNOSIS: Delivered. PROCEDURE: Spontaneous vaginal delivery. GREEN FEED ATTENDANT: Kanu Peter CNM, SHADIA ANESTHESIA: epidural. ESTIMATED BLOOD LOSS: 150 mL. FINDINGS: 7 pounds 9 ounces; 3420 grams, male , Score 8/9, preeclampsia. DELIVERY SUMMARY: Earlene is a 30-year-old female who is now a who presented to L&D for an induction of preeclampsia. She received 3 tabs of Cytotec and IV Pitocin for induction. She progressed to fully dilated at 1508 and pushed to a living male in the ALBERTO position with restitution to ROT. The anterior shoulder delivered with ease and the corpus immediately followed. The baby was placed [id number] active and crying. The cord was clamped x2 after 1 minute and cut by the FOB. Cord blood was obtained. A 3-vessel cord was noted. The rest of the Pitocin was put to bolus. The placenta delivered at 1533. Uterine hemostasis was achieved via rapid infusion of IV Pitocin and fundal massage. The vagina, cervix, and perineum was inspected and found to be intact. Mom plans to formula feed. They are naming him Yousif. Both mom and baby are in stable condition. All counts of instruments and sponges are correct. KANU PETER CNM Mar 14, 2021 16:06
[2021-03-14] MEDS: IBUPROFEN 800 MG TAB PO PRN (17:57)
[2021-03-14] MEDS: DOCUSATE SODIUM 100MG CAPSULE PO PRN (19:42)
[2021-03-14] MEDS: ACETAMINOPHEN 500 MG TAB PO PRN (19:42)
[2021-03-15 02:00] VITALS: BP 132/89
[2021-03-15] MEDS: IBUPROFEN 800 MG TAB PO PRN ×2 (05:53→22:28)
[2021-03-15 06:10] VITALS: BP 133/82
[2021-03-15 07:08] LABS: HEMATOCRIT 28.9 % (36.0-47.0); HEMOGLOBIN 9.5 g/dl (12.0-15.5); MEAN CORPUSCULAR HEMOGLOBIN 28.8 pg (27.0-33.0); MEAN CORPUSCULAR HGB CONC 32.9 g/dl (32.0-36.5); MEAN CORPUSCULAR VOLUME 87.6 fl (80.0-96.0); PLATELET COUNT, AUTOMATED 209 10^3/uL (150-450); WHITE BLOOD COUNT 15.6 10^3/uL (4.0-10.0)
[2021-03-15 07:35] LABS: ALT/SGPT 15 U/L (12-78); BILIRUBIN,TOTAL 0.3 MG/DL (0.2-1.0); CREATININE FOR GFR 0.35 MG/DL (0.55-1.30); GLOMERULAR FILTRATION RATE > 60.0 (>60); LDH LACTATE DEHYDROGENASE 199 U/L (84-246); URIC ACID 5.4 MG/DL (2.6-6.0)
[2021-03-15 08:30] VITALS: BP 129/86
[2021-03-15] MEDS ORDERED: BOOSTRIX/ADACEL VACCINE (DIPHTH/PERTUSS/ACELL/TETANUS) 0.5ML SYR IM ONE (09:00)
[2021-03-15] MEDS: PRENATAL VITAMINS CHEWABLE TABLET PO SCH (09:25)
--- NOTE | 2021-03-15 11:28 | IPNPDOC ---
Progress Note Date of Service: Mar 15, 2021 Day#: 1 Progress Note SUBJECT: Earlene is a 30-year-old female who is now a who presented to L&D for an induction due to preeclampsia. She received Cytotec and IV Pitocin for induction. She delivered a living male. Currently formula feeding. She reports bleeding is minimal. She reports she is ambulating, voiding, and eating a regular diet. OBJECTIVE: VITAL SIGNS: Within normal limits, afebrile. Alert and oriented times three. Breath sounds clear to auscultation. Abdomen: Fundus firm at U-1. Soft, NTTP. Minimal lochia. ASSESSMENT: Day 1 , preeclampsia. PLAN: 1. Continue supportive nursing care. 2. IV may be removed. 3. Patient may shower. 4. PFS to see patient today. 5. Anticipate discharge to home tomorrow. VS, I&O, 24H, Fishbone Vital Signs/I&O Vital Signs Date Time Temp Pulse Resp B/P (MAP) Pulse Ox O2 Delivery O2 Flow Rate FiO2 03/15/21 08:30 97.1 98 18 129/86 (100) 95 Room Air I&O- Last 24 Hours up to 6 AM 03/15/21 06:00 Intake Total 6286.3 ml Output Total 2025 ml Balance 4261.3 ml Laboratory Data 24H LABS Laboratory Tests 2 03/15/21 06:42: Nucleated Red Blood Cells % (auto) 0.0, Glomerular Filtration Rate > 60.0, Uric Acid 5.4, Total Bilirubin 0.3, Aspartate Amino Transf (AST/SGOT) 12, Alanine Aminotransferase (ALT/SGPT) 15, Lactate Dehydrogenase 199 CBC/BMP Laboratory Tests 03/15/21 06:42 KANU REDDY CNM Mar 15, 2021 11:28
[2021-03-15] MEDS: ACETAMINOPHEN 500 MG TAB PO PRN (13:56)
[2021-03-15 14:05] VITALS: BP 155/85
[2021-03-15] MEDS: DOCUSATE SODIUM 100MG CAPSULE PO PRN (16:54)
[2021-03-15 18:06] VITALS: BP 144/82
[2021-03-15 22:00] VITALS: BP 134/83
[2021-03-16 02:00] VITALS: BP 141/78
[2021-03-16] MEDS ORDERED: diphenhydrAMINE 50MG/ML VIAL (J1200) IV ONE (03:40)
[2021-03-16 06:00] VITALS: BP 131/78
[2021-03-16] MEDS: PRENATAL VITAMINS CHEWABLE TABLET PO SCH (08:03)
--- NOTE | 2021-03-16 08:55 | IPNPDOC ---
Progress Note Date of Service: Mar 16, 2021 Day#: 2 Progress Note PPD 2 SUBJECT: Earlene is a 30yo [id number] doing well on PPD2 s/p uncomplicated after undergoing IOL for preeclampsia at 37wk. She has been ambulating, voiding spontaneously without issue and tolerating regular diet. Bottle feeding by choice. Reports lochia is like a normal period. No f/c/n/v/CP/SOB. No KEY/vision changes/RUQ pain. OBJECTIVE: VITAL SIGNS: BPs normotensive to mild range, afebrile. Alert and oriented times three. Abdomen: Fundus firm at U-2. Soft, NTTP. Obese. Extremities: no pain with palpation of calves ASSESSMENT: Earlene is a 30yo [id number] doing well on PPD2 s/p uncomplicated after undergoing IOL for preeclampsia at 37wk. Normotensive to mild range bps, afebrile, hemodynamically stable with no evidence of infection. No s/sx of worsening pre-E. PLAN: 1. Discharge to home today. 2. Tylenol and Motrin for pain. 3. Encourage ambulation. 4. Regular diet 5. BP check in clinic on 03/18 then routine PP visit in 6 weeks in clinic. 6. Discussed return precautions at length. Brianna Snyder MD VS, I&O, 24H, Fishbone Vital Signs/I&O Vital Signs Date Time Temp Pulse Resp B/P (MAP) Pulse Ox O2 Delivery O2 Flow Rate FiO2 03/16/21 06:00 97.5 79 18 131/78 (95) 95 Room Air I&O- Last 24 Hours up to 6 AM 03/16/21 06:00 Intake Total 1558 ml Balance 1558 ml Brianna Snyder MD Mar 16, 2021 08:55
--- NOTE | 2021-03-16 08:57 | DS.PDOC ---
Discharge Summary General Date of Admission Mar 13, 2021 at 06:56 Date of Discharge Mar 16, 2021 Discharge Summary PROCEDURES PERFORMED DURING STAY: induction of labor for pre-eclampsia ADMITTING DIAGNOSES: 1. pre-eclampsia at 37 weeks DISCHARGE DIAGNOSES: 1. pre-eclampsia at 37 weeks, delivered COMPLICATIONS/CHIEF COMPLAINT: IOL. HISTORY OF PRESENT ILLNESS/HOSPITAL COURSE: Earlene is a 30yo [id number] doing well on PPD2 s/p uncomplicated after undergoing IOL for preeclampsia at 37wk. At time of discharge, she has normotensive to mild range bps, afebrile, she is hemodynamically stable with no evidence of infection. No s/sx of worsening pre-E. DISCHARGE MEDICATIONS: Please see below. ALLERGIES: Please see below. PHYSICAL EXAMINATION ON DISCHARGE: VITAL SIGNS: BPs normotensive to mild range, afebrile. Alert and oriented times three. Abdomen: Fundus firm at U-2. Soft, NTTP. Obese. Extremities: no pain with palpation of calves LABORATORY DATA: Please see below. ACTIVITY: As tolerated, vaginal rest no heavy lifting DISCHARGE PLAN/INSTRUCTIONS: 1. Discharge to home today. 2. Tylenol and Motrin for pain. 3. Encourage ambulation. 4. Regular diet 5. BP check in clinic on 03/18 then routine PP visit in 6 weeks in clinic. 6. Discussed return precautions at length. DISCHARGE CONDITION: Stable TIME SPENT ON DISCHARGE: Greater than 20 minutes. Vital Signs/I&Os Vital Signs Date Time Temp Pulse Resp B/P (MAP) Pulse Ox O2 Delivery O2 Flow Rate FiO2 03/16/21 06:00 97.5 79 18 131/78 (95) 95 Room Air I&O- Last 24 Hours up to 6 AM 03/16/21 06:00 Intake Total 1558 ml Balance 1558 ml Discharge Medications Scheduled Aspirin (Ecotrin) 81 Mg Tablet.dr, 81 MG PO DAILY, (Reported) Metoclopramide Hcl (Reglan) 5 Mg Tablet, 1 TAB PO BID, (Reported) 1 hour prior to procedure Prenat 115/Iron Fum/Folic/Dss ( 19 Tablet) 1 Each Tablet, 1 TAB PO DAILY, (Reported) Scheduled PRN Acetaminophen (Acetaminophen) 500 Mg Tablet, 1,000 MG PO Q8HP PRN for PAIN Calcium Carbonate (Tums) 300 Mg Tab.chew, 3-4 TAB PO Q6HP PRN for INDIGESTION, (Reported) Allergies Coded Allergies: Penicillins (Verified Allergy, Severe, rash, 06/16/19) amoxicillin (Verified Allergy, Severe, rash, 02/15/20) cefaclor (Verified Allergy, Severe, rash, 06/16/19) Brianna Snyder MD Mar 16, 2021 08:57
[2021-03-16] MEDS ORDERED: IBUP80TA PO (08:59)
[2021-03-16] MEDS ORDERED: DOK1CAP7 PO (08:59)
== END 2021-03-16 11:40 | disposition home or self-care (01) | DRG 560 ==
LOC: M LDI 06:56 → M OBS 03-14 17:18
PROVIDERS: ADMIT Specialist; ATTEND Advanced Practice Midwife
PROC: 3E0P7GC Introduction of Other Therapeutic Substance into Female Reproductive, Via Natural or Artificial Opening (ICD-10-PCS; 2021-03-13)
PROC: 10E0XZZ Delivery of Products of Conception, External Approach (ICD-10-PCS; principal; 2021-03-14)
DX: O14.94 Unspecified pre-eclampsia, complicating childbirth (principal); O98.32 Other infections with a predominantly sexual mode of transmission complicating childbirth; E66.9 Obesity, unspecified; Z3A.37 37 weeks gestation of pregnancy; O99.214 Obesity complicating childbirth; A60.09 Herpesviral infection of other urogenital tract; Z88.0 Allergy status to penicillin; Z88.1 Allergy status to other antibiotic agents; Z37.0 Single live birth

== ENCOUNTER 2021-04-29 22:36 | Emergency (ER) | payer OTHER ==
[~2021-04-29] VITALS: Ht 160 cm; Wt 137.1 kg
[~2021-04-29 22:36] MED LIST changes: +DOK1CAP7 PO; +ECOT81TA5 PO; +REGL5TAB2 PO; +TUMS750C5 PO
[2021-04-30] MEDS ORDERED: LIDO2SOL17 PO (02:00)
[2021-04-30] MEDS ORDERED: KETO10TAB PO (02:00)
[2021-04-30] MEDS ORDERED: CLEO300C2 PO (02:00)
[2021-04-30] MEDS: LIDOCAINE VISCOUS 2% SOLN 15ML UDC SSP ONE (02:26)
[2021-04-30] MEDS: CLINDAMYCIN 150MG CAPSULE PO ONE (02:26)
[2021-04-30] MEDS: KETOROLAC TROMETHAMINE 10 MG TAB PO ONE (02:26)
[2021-04-30 02:32] VITALS: BP 141/93
== END 2021-04-30 02:33 | disposition home or self-care (01) ==
LOC: M ED 22:36
DX: K04.7 Periapical abscess without sinus (principal); L03.211 Cellulitis of face; I10 Essential (primary) hypertension; K21.9 Gastro-esophageal reflux disease without esophagitis; F33.9 Major depressive disorder, recurrent, unspecified; E66.9 Obesity, unspecified; Z87.19 Personal history of other diseases of the digestive system; Z88.0 Allergy status to penicillin; Z88.1 Allergy status to other antibiotic agents

== ENCOUNTER → 2021-08-17 | Outpatient (REF) | payer OTHER ==
[~2021-08-17] MED LIST changes: +CLEO300C2 PO; +DOK1CAP4 PO; -DOK1CAP7 PO; +KETO10TAB PO; +LIDO2SOL17 PO
== END ==
LOC: M SFHCWAGY 10:05
PROVIDERS: ATTEND Advanced Practice Midwife
DX: Z12.4 Encounter for screening for malignant neoplasm of cervix (principal); R87.610 Atypical squamous cells of undetermined significance on cytologic smear of cervix (ASC-US); A59.9 Trichomoniasis, unspecified

== ENCOUNTER → 2022-08-29 | Outpatient (CLI) | payer OTHER ==
[2022-08-29 17:58] LABS: HEMATOCRIT 38.1 % (36.0-47.0); HEMOGLOBIN 12.7 g/dl (12.0-15.5); MEAN CORPUSCULAR HEMOGLOBIN 29.2 pg (27.0-33.0); MEAN CORPUSCULAR HGB CONC 33.3 g/dl (32.0-36.5); MEAN CORPUSCULAR VOLUME 87.6 fl (80.0-96.0); PLATELET COUNT, AUTOMATED 273 10^3/uL (150-450); RED BLOOD COUNT 4.35 10^6/uL (4.00-5.40); WHITE BLOOD COUNT 15.2 10^3/uL (4.0-10.0)
[2022-08-29 18:16] LABS: TOTAL PROTEIN,RANDOM URINE 120.8 MG/DL (0.0-12.0)
[2022-08-29 19:22] LABS: GLUCOSE CHALLENGE TEST 1 HOUR 128 MG/DL (LESS THAN 140); HIV 1&2 SCREEN CENTAUR NEGATIVE (NEGATIVE)
[2022-08-29 21:00] LABS: GC DNA AMPLIFICATION NEGATIVE (NEGATIVE)
== END ==
LOC: M PLALAB 14:34
PROVIDERS: ATTEND Obstetrics & Gynecology
DX: O09.291 Supervision of pregnancy with other poor reproductive or obstetric history, first trimester (principal)

== ENCOUNTER → 2022-09-22 | Outpatient (CLI) | payer OTHER | LOC: M WHC 11:57 | PROVIDERS: ATTEND Advanced Practice Midwife | DX: Z34.92 Encounter for supervision of normal pregnancy, unspecified, second trimester (principal); Z3A.19 19 weeks gestation of pregnancy ==

== ENCOUNTER → 2022-11-09 | Outpatient (CLI) | payer OTHER | LOC: M WHC 11:50 | PROVIDERS: ATTEND Specialist | DX: Z34.82 Encounter for supervision of other normal pregnancy, second trimester (principal); Z3A.26 26 weeks gestation of pregnancy ==

== ENCOUNTER → 2023-01-02 | Outpatient (CLI) | payer OTHER ==
[~2023-01-02] MED LIST changes: +LIDO15SO4 PO; -LIDO2SOL17 PO
== END ==
LOC: M PLALAB 12:39
PROVIDERS: ATTEND Specialist
DX: Z34.82 Encounter for supervision of other normal pregnancy, second trimester (principal)

== ENCOUNTER → 2023-01-02 | Outpatient (CLI) | payer OTHER ==
[2023-01-02 17:33] LABS: ALBUMIN 2.5 G/DL (3.2-5.2); ALKALINE PHOSPHATASE 127 U/L (46-116); ALT/SGPT 11 U/L (7.0-40); AST/SGOT 10 U/L (<34); BILIRUBIN,TOTAL 0.3 MG/DL (0.3-1.2); BLOOD UREA NITROGEN 5 MG/DL (9-23); CARBON DIOXIDE LEVEL 21 MMOL/L (20-31); CHLORIDE LEVEL 106 MMOL/L (98-107); CREATININE FOR GFR 0.44 MG/DL (0.55-1.30); GLOMERULAR FILTRATION RATE > 60.0 (>60); GLUCOSE, FASTING 91 MG/DL (60-100); SODIUM LEVEL 138 MMOL/L (136-145); TOTAL PROTEIN 6.3 G/DL (5.7-8.2)
[2023-01-02 17:50] LABS: TOTAL PROTEIN,RANDOM URINE 52.1 MG/DL (0.0-14.0)
[2023-01-02 17:55] LABS: CREATININE,RANDOM URINE 75.2 MG/DL
== END ==
LOC: M PLALAB 14:49
PROVIDERS: ATTEND Obstetrics & Gynecology
DX: O16.3 Unspecified maternal hypertension, third trimester (principal); Z3A.00 Weeks of gestation of pregnancy not specified

== ENCOUNTER → 2023-01-02 | Outpatient (CLI) | payer OTHER ==
[2023-01-02 17:32] LABS: HEMATOCRIT 34.1 % (36.0-47.0); HEMOGLOBIN 11.5 g/dl (12.0-15.5); MEAN CORPUSCULAR HEMOGLOBIN 28.5 pg (27.0-33.0); MEAN CORPUSCULAR HGB CONC 33.7 g/dl (32.0-36.5); MEAN CORPUSCULAR VOLUME 84.6 fl (80.0-96.0); PLATELET COUNT, AUTOMATED 322 10^3/uL (150-450); RED BLOOD COUNT 4.03 10^6/uL (4.00-5.40); WHITE BLOOD COUNT 14.4 10^3/uL (4.0-10.0)
[2023-01-02 19:16] LABS: GC DNA AMPLIFICATION NEGATIVE (NEGATIVE)
== END ==
LOC: M PLALAB 14:51
PROVIDERS: ATTEND Specialist
DX: Z34.82 Encounter for supervision of other normal pregnancy, second trimester (principal)

== ENCOUNTER 2023-01-06 13:02 | Observation (INO) | payer OTHER ==
[2023-01-06] VITALS (10 sets, daily range): BP systolic 96–137; BP diastolic 52–76
[~2023-01-06] VITALS: Ht 162.6 cm; Wt 153.3 kg
[2023-01-06] MEDS ORDERED: REGL5TAB2 PO (13:29)
[2023-01-06] MEDS ORDERED: OMEP10CASR PO (13:30)
[2023-01-06] MEDS ORDERED: LABE200T5 PO (13:31)
[2023-01-06] MEDS ORDERED: HOME MED LIST COMPLETE! XX SCH (13:35)
[2023-01-06 13:36] LABS: HEMATOCRIT 35.4 % (36.0-47.0); HEMOGLOBIN 11.6 g/dl (12.0-15.5); MEAN CORPUSCULAR HEMOGLOBIN 27.9 pg (27.0-33.0); MEAN CORPUSCULAR HGB CONC 32.8 g/dl (32.0-36.5); MEAN CORPUSCULAR VOLUME 85.1 fl (80.0-96.0); PLATELET COUNT, AUTOMATED 314 10^3/uL (150-450); RED BLOOD COUNT 4.16 10^6/uL (4.00-5.40); WHITE BLOOD COUNT 15.3 10^3/uL (4.0-10.0)
[2023-01-06 14:02] LABS: TOTAL PROTEIN,RANDOM URINE 106.8 MG/DL (0.0-14.0)
[2023-01-06 14:03] LABS: URIC ACID 5.5 MG/DL (3.1-7.8)
[2023-01-06 14:06] LABS: ALT/SGPT 9 U/L (7.0-40); AST/SGOT < 8 U/L (<34); BILIRUBIN,TOTAL 0.3 MG/DL (0.3-1.2); CREATININE FOR GFR 0.47 MG/DL (0.55-1.30); GLOMERULAR FILTRATION RATE > 60.0 (>60); LDH LACTATE DEHYDROGENASE 135 U/L (120-246)
[2023-01-06 14:07] LABS: CREATININE,RANDOM URINE 69.6 MG/DL
[2023-01-06] MEDS: BETAMETHASONE SOLUSPAN 6MG/ML 5ML VIAL IM SCH (15:51)
[2023-01-06] MEDS: LABETALOL 200 MG TAB PO SCH ×2 (16:24→21:55)
[2023-01-06] MEDS ORDERED: GLUCOSE 4GM CHEW TABLET PO PRN (19:55)
[2023-01-06] MEDS ORDERED: GLUCAGON INJ 1MG VIAL SC PRN (19:55)
[2023-01-06] MEDS ORDERED: DEXTROSE 50% 50ML SYRINGE IV PRN (19:55)
[2023-01-06] MEDS: INSULIN LISPRO (NovoLOG) PER UNIT SC SCH ×2 (20:33→23:38)
[2023-01-07] VITALS (24 sets, daily range): BP systolic 106–135; BP diastolic 50–83
[2023-01-07] MEDS: INSULIN LISPRO (NovoLOG) PER UNIT SC SCH ×8 (02:46→23:44)
[2023-01-07] MEDS: LABETALOL 200 MG TAB PO SCH ×3 (08:54→21:00)
[2023-01-07] MEDS: valACYclovir HCL 500 MG TAB PO SCH ×2 (12:07→21:57)
[2023-01-07] MEDS: BETAMETHASONE SOLUSPAN 6MG/ML 5ML VIAL IM SCH (15:57)
[2023-01-08] VITALS (7 sets, daily range): BP systolic 97–132; BP diastolic 50–83
[2023-01-08] MEDS: INSULIN LISPRO (NovoLOG) PER UNIT SC SCH ×2 (02:43→05:41)
[2023-01-08] MEDS ORDERED: OMEPRAZOLE 20MG CAP PO ONE (03:20)
== END 2023-01-08 08:15 | disposition home or self-care (01) ==
LOC: M LDO 13:02 → M LDI 14:56
PROVIDERS: ADMIT Obstetrics & Gynecology; ATTEND Obstetrics & Gynecology
DX: O10.913 Unspecified pre-existing hypertension complicating pregnancy, third trimester (principal); O14.03 Mild to moderate pre-eclampsia, third trimester; Z3A.34 34 weeks gestation of pregnancy; O99.213 Obesity complicating pregnancy, third trimester; Z68.43 Body mass index [BMI] 50.0-59.9, adult; O09.43 Supervision of pregnancy with grand multiparity, third trimester; Z79.899 Other long term (current) drug therapy; Z88.0 Allergy status to penicillin; Z88.1 Allergy status to other antibiotic agents
CPT/HCPCS: 36415; 59025; 76815; 82247; 82565; 82570; 83615; 84156; 84450; 84460; 84550; 85027; 87081; 87635; 96372; G0463; J0702; J1815

== ENCOUNTER → 2023-09-03 | Outpatient (REF) | payer OTHER ==
[~2023-09-03] MED LIST changes: +COLA100C5 PO; +LABE200T5 PO; +LEVO1TAB40 PO; +LIDO15SO PO; -LIDO15SO4 PO; +METR-265 PO; +OMEP10CASR PO; +PERCOCET PO; +med rec comment
[2023-09-04 13:11] LABS: BASO % 0.3 % (0.0-1.0); EOS # 0.1 10^3/uL (0.0-0.5); HEMATOCRIT 44.5 % (36.0-47.0); HEMOGLOBIN 13.5 g/dl (12.0-15.5); LYMPH # 3.9 10^3/uL (1.5-5.0); LYMPH % 27.1 % (24.0-44.0); MEAN CORPUSCULAR HEMOGLOBIN 26.4 pg (27.0-33.0); MEAN CORPUSCULAR HGB CONC 30.3 g/dl (32.0-36.5); MEAN CORPUSCULAR VOLUME 86.9 fl (80.0-96.0); MONO # 0.6 10^3/uL (0.0-0.8); MONO % 3.9 % (2.0-8.0); NEUTROPHILS # 9.8 10^3/uL (1.5-8.5); NEUTROPHILS % 67.4 % (36.0-66.0); PLATELET COUNT, AUTOMATED 376 10^3/uL (150-450); RED BLOOD COUNT 5.12 10^6/uL (4.00-5.40); WHITE BLOOD COUNT 14.5 10^3/uL (4.0-10.0)
[2023-09-04 13:17] LABS: ALBUMIN 4.1 G/DL (3.2-5.2); ALKALINE PHOSPHATASE 106 U/L (46-116); ALT/SGPT 26 U/L (7.0-40); AST/SGOT 28 U/L (<34); BILIRUBIN,TOTAL 0.3 MG/DL (0.3-1.2); BLOOD UREA NITROGEN 14 MG/DL (9-23); CALCIUM LEVEL 9.2 MG/DL (8.5-10.1); CARBON DIOXIDE LEVEL 20 MMOL/L (20-31); CHLORIDE LEVEL 105 MMOL/L (98-107); CREATININE FOR GFR 0.52 MG/DL (0.55-1.30); GLOMERULAR FILTRATION RATE > 60.0 (>60); GLUCOSE, FASTING 87 MG/DL (60-100); POTASSIUM SERUM 4.5 MMOL/L (3.5-5.1); SODIUM LEVEL 137 MMOL/L (136-145); TOTAL PROTEIN 7.9 G/DL (5.7-8.2)
[2023-09-04 13:18] LABS: THYROID STIMULATING HORMONE 0.892 uIU/ML (0.55-4.78)
[2023-09-04 13:29] LABS: CREATININE, URINE 172.9 MG/DL
[2023-09-04 13:42] LABS: MAU/CREAT RATIO 1412.3 MCG/MG (0.0-30.0)
== END ==
LOC: M LAB REF 12:06
PROVIDERS: ATTEND Pediatrics
DX: R03.0 Elevated blood-pressure reading, without diagnosis of hypertension (principal)

== ENCOUNTER → 2024-01-17 | Outpatient (CLI) | payer OTHER ==
[2024-01-17 18:43] LABS: HIV 1&2 SCREEN NEGATIVE (NEGATIVE)
[2024-01-17 18:50] LABS: HEPATITIS C VIRUS ABY INDEX < 0.02 INDEX (<0.8)
[2024-01-17 18:51] LABS: HEPATITIS B CORE ANTIBODY IGM NEGATIVE (NEGATIVE)
[2024-01-17 20:42] LABS: Trichomonas vaginalis (AMP) NOT DETECTED (NEGATIVE)
[2024-01-17 21:05] LABS: GC DNA AMPLIFICATION NEGATIVE (NEGATIVE)
== END ==
LOC: M PLALAB 16:09
PROVIDERS: ATTEND Nurse Practitioner Family
DX: Z11.3 Encounter for screening for infections with a predominantly sexual mode of transmission (principal); Z11.51 Encounter for screening for human papillomavirus (HPV)

== ENCOUNTER → 2024-02-01 | Outpatient (CLI) | payer OTHER ==
[~2024-02-01] MED LIST changes: -LIDO15SO PO; +LIDO15SO8 PO
== END ==
LOC: M WHC 08:41
PROVIDERS: ATTEND Nurse Practitioner Family
DX: Z12.31 Encounter for screening mammogram for malignant neoplasm of breast (principal); Z80.3 Family history of malignant neoplasm of breast

== ENCOUNTER → 2024-04-27 | Outpatient (CLI) | payer OTHER | LOC: M RAD 11:28 | PROVIDERS: ATTEND Physician Assistant Medical | DX: M25.561 Pain in right knee (principal) ==

== ENCOUNTER → 2024-09-25 | Outpatient (REF) | payer OTHER ==
[2024-09-25 21:18] LABS: APPEARANCE, URINE HAZY (CLEAR); BACTERIA, URINE AUTO 2+ (NEGATIVE); BILIRUBIN, URINE AUTO NEGATIVE (NEGATIVE); BLOOD, URINE BLOOD 2+ (NEGATIVE); COLOR, URINE YELLOW (YELLOW); GLUCOSE, URINE (UA) AUTO NEGATIVE (NEGATIVE); KETONE, URINE AUTO NEGATIVE (NEGATIVE); LEUKOCYTE ESTERASE, URINE AUTO 1+ (NEGATIVE); MUCUS, URINE SMALL (NEGATIVE); NITRITE, URINE AUTO NEGATIVE (NEGATIVE); PROTEIN, URINE AUTO 2+ mg/dL (NEGATIVE); RBC, URINE AUTO 4 /HPF (0-3); SPECIFIC GRAVITY URINE AUTO 1.023 (1.002-1.035); SQUAMOUS EPITHELIAL CELL UR AU 15 /HPF (0-6); WBC, URINE AUTO 53 /HPF (0-3)
== END ==
LOC: M LAB REF 20:48
PROVIDERS: ATTEND Physician Assistant
DX: N39.0 Urinary tract infection, site not specified (principal)

== ENCOUNTER → 2025-05-11 | Outpatient (CLI) | payer OTHER | LOC: M WHC 12:52 | PROVIDERS: ATTEND Nurse Practitioner Family | DX: Z12.31 Encounter for screening mammogram for malignant neoplasm of breast (principal); R92.8 Other abnormal and inconclusive findings on diagnostic imaging of breast ==